=== PATIENT | female | born 1970 | race Caucasian/White ===

== ENCOUNTER 2017-04-21 08:54 | Day surgery (SDC) | payer MEDICARE, OTHER ==
[~2017-04-21] VITALS: Ht 167.6 cm; Wt 119.2 kg
[~2017-04-21 08:54] MED LIST: ACET500; AMIT10; AMOX500 PO; ANTOXYBENA OT; Advil200 M1 PO; BIRTH CONTROL PILLS; CIPR500; CYCL10 PO; DIAZ10 PO; DIAZ2 PO; DIAZ5 PO; DULO30 PO; ESOM20; ESTR2 PO; GABA300 PO; HYDACE10B PO; HYDACE5 PO; HYDMOR2 PO; IBUP200; IBUP200 PO; IBUP800; IBUP800 PO; IRON; LEVSOD125 PO; LEVSOD137 PO; LEVSOD200; METF500C PO; NAPR550 PO; OMEP20ER; OMEP20ER PO; OXYACE5T PO; OXYACE7.5T; OXYB5 PO; OXYC5; PROM25 PO; Pyridium200 MG; RANI150 PO; STOMUL; SUCR1 PO; SYNTHROID; Synthroid/Levothroid PO; TIZA4 PO; TRAZ150T57 PO; VARE1 PO; Zanaflex4 M1 PO; [UNRECOGNIZED DRUG - OTHER]
== END 2017-04-21 13:30 | disposition home or self-care (01) ==
LOC: ORSCSDS 08:54
PROVIDERS: Urology
PROC: 0T768DZ Dilation of Right Ureter with Intraluminal Device, Via Natural or Artificial Opening Endoscopic (ICD-10-PCS; principal; 2017-04-21 10:15)
PROC: 0TF68ZZ Fragmentation in Right Ureter, Via Natural or Artificial Opening Endoscopic (ICD-10-PCS; principal; 2017-04-21 10:15)
DX: N20.1 Calculus of ureter (principal); G47.33 Obstructive sleep apnea (adult) (pediatric); E66.01 Morbid (severe) obesity due to excess calories; Z68.41 Body mass index [BMI] 40.0-44.9, adult; E03.9 Hypothyroidism, unspecified; Z87.891 Personal history of nicotine dependence; Z79.899 Other long term (current) drug therapy
CPT/HCPCS: C1769; C1889; C1894; C2617; J0744; J1885; J2250; J2405; J2710; J3010; J7120

== ENCOUNTER 2017-12-20 18:23 | Emergency (ER) | payer MEDICARE ==
[~2017-12-20] VITALS: Ht 167.6 cm; Wt 108.9 kg
[2017-12-20] MEDS ORDERED: LIDO700A20 TOP (19:37)
[2017-12-20] MEDS ORDERED: Zofran Odt4 MG SL (19:37)
[2017-12-20] MEDS ORDERED: METPRE4DP PO (19:37)
== END 2017-12-20 19:54 | disposition home or self-care (01) ==
LOC: ER 18:23
DX: M54.41 Lumbago with sciatica, right side (principal); Z88.5 Allergy status to narcotic agent; Z88.8 Allergy status to other drugs, medicaments and biological substances; Z79.899 Other long term (current) drug therapy; F17.210 Nicotine dependence, cigarettes, uncomplicated
CPT/HCPCS: 96372; 99283; J1885

== ENCOUNTER 2020-06-21 17:01 | Emergency (ER) | payer MEDICARE ==
[~2020-06-21] VITALS: Ht 165.1 cm; Wt 117.9 kg
[~2020-06-21 17:01] MED LIST changes: +LIDO700A20 TOP; +METPRE4DP PO; -TRAZ150T57 PO; +TRAZ50 PO; -Zanaflex4 M1 PO; +Zofran Odt4 MG SL
[2020-06-21 17:37] LABS: BASOPHILS ABSOLUTE AUTO 0.04 K/mm3 (0.00-0.23); BASOPHILS PERCENT AUTO 0 % (0-2); EOSINOPHILS ABSOLUTE AUTO 0.17 K/mm3 (0.00-0.68); EOSINOPHILS PERCENT AUTO 2 % (0-6); Hematocrit 46.4 % (33.0-51.0); Hemoglobin 15.4 g/dL (11.5-16.0); IMMATURE GRAN ABSOLUTE AUTO 0.03 K/mm3 (0.00-0.10); IMMATURE GRAN PERCENT AUTO 0 % (0-1); LYMPHOCYTES ABSOLUTE AUTO 2.57 K/mm3 (0.84-5.20); LYMPHOCYTES PERCENT AUTO 22 % (21-46); MONOCYTES PERCENT AUTO 7 % (4-13); Mean Corpuscular HGB 30.2 pg (26.0-34.0); Mean Corpuscular HGB Conc 33.2 g/dL (31.5-36.5); Mean Corpuscular Volume 91 fL (80-100); NEUTROPHILS ABSOLUTE AUTO 7.87 K/mm3 (1.96-9.15); NEUTROPHILS PERCENT AUTO 69 % (41-73); Platelet Count 205 K/mm3 (150-400); RDW Coefficient Variation 13.2 % (11.7-14.2); White Blood Cell Count 11.48 K/mm3 (4.00-11.30)
[2020-06-21 17:57] LABS: Alanine Aminotransfer (ALT/SGP 23 U/L (12-78); Albumin, Blood 3.5 g/dL (3.4-5.0); Albumin/Globulin Ratio 0.9 (0.8-1.8); Alk Phos 83 U/L (50-136); Anion Gap 4 mmol/L (6-16); Aspartate Aminotrans (AST/SGOT 19 U/L (12-37); Bilirubin, Total 0.3 mg/dL (0.1-1.0); Blood Urea Nitrogen 8 mg/dL (8-24); Bun/Creatinine Ratio 10.1 (12.0-20.0); CO2, Blood 25 mmol/L (21-32); Calcium, Blood 8.9 mg/dL (8.5-10.1); Chloride, Blood 111 mmol/L (98-108); Globulin, Blood 3.9 g/dL (2.2-4.0); Glomerular Filtration Rate >60 (60-); Glucose, Blood 102 mg/dL (70-99); Potassium, Blood 3.9 mmol/L (3.5-5.5); Sodium, Blood 140 mmol/L (136-145); Total Protein, Blood 7.4 g/dL (6.4-8.2)
[2020-06-21] MEDS ORDERED: PREG100 PO (19:30)
[2020-06-21] MEDS ORDERED: Cleocin HCl300 MG PO (19:53)
== END 2020-06-21 20:01 | disposition home or self-care (01) ==
LOC: ER 17:01
PROVIDERS: Physician Assistant
DX: K04.7 Periapical abscess without sinus (principal); F17.210 Nicotine dependence, cigarettes, uncomplicated; Z88.5 Allergy status to narcotic agent; Z88.8 Allergy status to other drugs, medicaments and biological substances; Z79.899 Other long term (current) drug therapy
CPT/HCPCS: 36415; 41800; 80053; 85025; 99283-25; A9270

== ENCOUNTER 2020-07-02 09:27 | Day surgery (SDC) | payer MEDICARE ==
[~2020-07-02] VITALS: Ht 167.6 cm; Wt 126.6 kg
[~2020-07-02 09:27] MED LIST changes: +Cleocin HCl300 MG PO; +PREG100 PO
== END 2020-07-02 11:20 | disposition home or self-care (01) ==
LOC: ORSCSDS 09:27
PROVIDERS: Orthopaedic Surgery
PROC: 01N54ZZ Release Median Nerve, Percutaneous Endoscopic Approach (ICD-10-PCS; principal; 2020-07-02 10:45)
DX: G56.02 Carpal tunnel syndrome, left upper limb (principal); F17.210 Nicotine dependence, cigarettes, uncomplicated; E66.01 Morbid (severe) obesity due to excess calories; Z68.42 Body mass index [BMI] 45.0-49.9, adult; Z79.899 Other long term (current) drug therapy
CPT/HCPCS: A9270; J2250; J2704; J3010

== ENCOUNTER → 2020-11-17 | Outpatient (CLI) | payer MEDICARE | END | disposition home or self-care (01) | LOC: LAB 18:17 → LAB SHORT 18:17 | DX: E03.9 Hypothyroidism, unspecified (principal) | CPT/HCPCS: 84443 ==

== ENCOUNTER → 2021-06-24 | Outpatient (CLI) | payer OTHER | END | disposition home or self-care (01) | LOC: LAB SHORT 12:53 | DX: R10.13 Epigastric pain (principal); R10.11 Right upper quadrant pain; R14.0 Abdominal distension (gaseous); Z98.84 Bariatric surgery status | CPT/HCPCS: 87338 ==

== ENCOUNTER → 2022-03-26 | Outpatient (CLI) | payer OTHER ==
[2022-03-26 16:05] LABS: BASOPHILS ABSOLUTE AUTO 0.04 K/mm3 (0.00-0.23); BASOPHILS PERCENT AUTO 0 % (0-2); EOSINOPHILS ABSOLUTE AUTO 0.15 K/mm3 (0.00-0.68); EOSINOPHILS PERCENT AUTO 2 % (0-6); Hematocrit 47.1 % (33.0-51.0); Hemoglobin 15.5 g/dL (11.5-16.0); IMMATURE GRAN ABSOLUTE AUTO 0.02 K/mm3 (0.00-0.10); IMMATURE GRAN PERCENT AUTO 0 % (0-1); LYMPHOCYTES ABSOLUTE AUTO 3.05 K/mm3 (0.84-5.20); LYMPHOCYTES PERCENT AUTO 31 % (21-46); MONOCYTES PERCENT AUTO 5 % (4-13); Mean Corpuscular HGB 28.8 pg (26.0-34.0); Mean Corpuscular HGB Conc 32.9 g/dL (31.5-36.5); Mean Corpuscular Volume 88 fL (80-100); Mean Platelet Volume 11.4 fL (9.1-12.4); NEUTROPHILS ABSOLUTE AUTO 6.11 K/mm3 (1.96-9.15); NEUTROPHILS PERCENT AUTO 62 % (41-73); Platelet Count 240 K/mm3 (150-400); RDW Coefficient Variation 13.4 % (11.7-14.2); RDW Standard Deviation 42.8 fL (35.1-46.3); Red Blood Cell Count 5.38 M/mm3 (3.80-5.20); White Blood Cell Count 9.87 K/mm3 (4.00-11.30)
[2022-03-26 17:13] LABS: Alanine Aminotransfer (ALT/SGP 30 U/L (12-78); Albumin, Blood 3.6 g/dL (3.4-5.0); Alk Phos 73 U/L (50-136); Anion Gap 4 mmol/L (6-16); Aspartate Aminotrans (AST/SGOT 27 U/L (12-37); Bilirubin, Total 0.3 mg/dL (0.1-1.0); Blood Urea Nitrogen 11 mg/dL (8-24); CHOL/HDL RATIO 3.1; CO2, Blood 28 mmol/L (21-32); Calcium, Blood 9.1 mg/dL (8.5-10.1); Chloride, Blood 106 mmol/L (98-108); Cholesterol 132 mg/dL (50-200); Glucose, Blood 95 mg/dL (70-99); HDL Cholesterol 42 mg/dL (>39); Iron Serum 99 ug/dL (50-170); LDL/HDL RATIO 1.3; Low Density Lipoprotein Chol 53 mg/dL (0-110); Percent Saturation 26.3 % (15.0-50.0); Sodium, Blood 138 mmol/L (136-145); Total Iron Binding Capacity 376 ug/dL (250-450); Triglycerides 185 mg/dL (30-160); Very Low Density Lipoprot Chol 37 mg/dL (6-32)
[2022-03-26 17:58] LABS: Bun/Creatinine Ratio 13.9 (12.0-20.0); Creatinine, Blood 0.79 mg/dL (0.40-1.00); Ferritin, Serum 25 ng/mL (8-252); Globulin, Blood 3.6 g/dL (2.2-4.0); Glomerular Filtration Rate 91 (60-); Total Protein, Blood 7.2 g/dL (6.4-8.2)
== END | disposition home or self-care (01) ==
LOC: LAB SHORT 11:25 → LAB 11:25
PROVIDERS: Internal Medicine
DX: K91.2 Postsurgical malabsorption, not elsewhere classified (principal); E53.8 Deficiency of other specified B group vitamins; E55.9 Vitamin D deficiency, unspecified; E61.1 Iron deficiency; Z98.84 Bariatric surgery status
CPT/HCPCS: 36415; 80053; 80061; 82306; 82607; 82728; 82746; 83540; 83550; 85025

== ENCOUNTER → 2022-07-12 | Outpatient (CLI) | payer OTHER | END | disposition home or self-care (01) | LOC: LAB 12:00 → LAB SHORT 12:00 | DX: E66.01 Morbid (severe) obesity due to excess calories (principal); E78.5 Hyperlipidemia, unspecified | CPT/HCPCS: 84443 ==

== ENCOUNTER 2022-12-02 09:09 | Day surgery (SDC) | payer OTHER ==
[~2022-12-02] VITALS: Ht 167.6 cm; Wt 126.2 kg
[2022-12-02] MEDS ORDERED: TRIA50 PO (10:38)
[2022-12-02] MEDS ORDERED: HYDCHL25 PO (10:39)
--- NOTE | 2022-12-02 11:14 | NUR ---
12/02/22 1114 Yolanda Man PT GETTING HURRICAIN SPRAY PRIOR TO PROCEDURE ORDERED BY MD DODSON AND MD SYLVESTER TO MAKE THROAT NUMB.
[2022-12-02 12:26] VITALS: BP 146/78
== END 2022-12-02 12:32 | disposition home or self-care (01) ==
LOC: ORSCSDS 09:09 → ORD 10:30 → ORSCSDS 10:30
PROVIDERS: Internal Medicine Gastroenterology
PROC: 0DBH8ZX Excision of Cecum, Via Natural or Artificial Opening Endoscopic, Diagnostic (ICD-10-PCS; principal; 2022-12-02 10:30)
PROC: 0DB48ZX Excision of Esophagogastric Junction, Via Natural or Artificial Opening Endoscopic, Diagnostic (ICD-10-PCS; principal; 2022-12-02 10:30)
PROC: 0DB78ZX Excision of Stomach, Pylorus, Via Natural or Artificial Opening Endoscopic, Diagnostic (ICD-10-PCS; principal; 2022-12-02 10:30)
DX: K21.9 Gastro-esophageal reflux disease without esophagitis (principal); R63.4 Abnormal weight loss; R93.5 Abnormal findings on diagnostic imaging of other abdominal regions, including retroperitoneum; D12.0 Benign neoplasm of cecum; K57.30 Diverticulosis of large intestine without perforation or abscess without bleeding; Z98.84 Bariatric surgery status; F17.210 Nicotine dependence, cigarettes, uncomplicated; I10 Essential (primary) hypertension; B19.20 Unspecified viral hepatitis C without hepatic coma; G47.33 Obstructive sleep apnea (adult) (pediatric); E66.01 Morbid (severe) obesity due to excess calories; Z68.42 Body mass index [BMI] 45.0-49.9, adult; E03.9 Hypothyroidism, unspecified; F32.A Depression, unspecified; Z79.899 Other long term (current) drug therapy
CPT/HCPCS: 82947; 88305; 88342; A9270; J2250; J2704; J7120

== ENCOUNTER → 2023-05-24 | Outpatient (CLI) | payer OTHER ==
[~2023-05-24] MED LIST changes: +HYDCHL25 PO; +TRIA50 PO
== END | disposition home or self-care (01) ==
LOC: LAB 13:32 → LAB SHORT 13:32
DX: L43.2 Lichenoid drug reaction (principal); R21 Rash and other nonspecific skin eruption
CPT/HCPCS: 88305

== ENCOUNTER → 2024-01-18 | Outpatient (CLI) | payer OTHER | END | disposition home or self-care (01) | LOC: LAB SHORT 13:10 → LAB 13:10 | DX: D18.01 Hemangioma of skin and subcutaneous tissue (principal) | CPT/HCPCS: 88305 ==

== ENCOUNTER → 2024-04-20 | Outpatient (CLI) | payer OTHER | LOC: LAB SHORT 13:38 → LAB 13:38 | DX: L02.419 Cutaneous abscess of limb, unspecified (principal) | CPT/HCPCS: 87070; 87075; 87077; 87147; 87186; 87205 ==

== ENCOUNTER → 2024-05-16 | Outpatient (CLI) | payer OTHER | LOC: LAB 16:58 → LAB SHORT 16:58 | DX: N39.0 Urinary tract infection, site not specified (principal) | CPT/HCPCS: 87077; 87086; 87186 ==

== ENCOUNTER 2024-06-05 08:27 | Emergency (ER) | payer OTHER ==
[~2024-06-05] VITALS: Ht 167.6 cm; Wt 126.1 kg
[2024-06-05] MEDS ORDERED: NS 1,000 ML IV SCH (09:15)
[2024-06-05 09:44] LABS: BASOPHILS ABSOLUTE AUTO 0.02 K/mm3 (0.00-0.23); BASOPHILS PERCENT AUTO 0 % (0-2); EOSINOPHILS ABSOLUTE AUTO 0.17 K/mm3 (0.00-0.68); EOSINOPHILS PERCENT AUTO 2 % (0-6); Hematocrit 44.2 % (33.0-51.0); IMMATURE GRAN ABSOLUTE AUTO 0.02 K/mm3 (0.00-0.10); IMMATURE GRAN PERCENT AUTO 0 % (0-1); LYMPHOCYTES ABSOLUTE AUTO 0.76 K/mm3 (0.84-5.20); LYMPHOCYTES PERCENT AUTO 7 % (21-46); MONOCYTES ABSOLUTE AUTO 0.37 K/mm3 (0.16-1.47); MONOCYTES PERCENT AUTO 4 % (4-13); Mean Corpuscular HGB 29.3 pg (26.0-34.0); Mean Corpuscular HGB Conc 33.9 g/dL (31.5-36.5); Mean Corpuscular Volume 86 fL (80-100); Mean Platelet Volume 10.6 fL (9.1-12.4); NEUTROPHILS ABSOLUTE AUTO 8.98 K/mm3 (1.96-9.15); NEUTROPHILS PERCENT AUTO 87 % (41-73); Platelet Count 240 K/mm3 (150-400); RDW Coefficient Variation 12.6 % (11.7-14.2); RDW Standard Deviation 40.3 fL (35.1-46.3); Red Blood Cell Count 5.12 M/mm3 (3.80-5.20); White Blood Cell Count 10.32 K/mm3 (4.00-11.30)
[2024-06-05 10:06] LABS: Albumin, Blood 3.2 g/dL (3.4-5.0); Albumin/Globulin Ratio 0.8 (0.8-1.8); Bilirubin, Total 0.3 mg/dL (0.1-1.0); Calcium, Blood 9.1 mg/dL (8.5-10.1); Creatinine, Blood 0.85 mg/dL (0.40-1.00); Globulin, Blood 4.2 g/dL (2.2-4.0); Potassium, Blood 3.5 mmol/L (3.5-5.5); Total Protein, Blood 7.4 g/dL (6.4-8.2)
[2024-06-05 10:09] VITALS: BP 146/89
[2024-06-05] MEDS ORDERED: MONDOXYNE NL100 MG PO (10:45)
== END 2024-06-05 11:00 | disposition home or self-care (01) ==
LOC: ER 08:27
PROVIDERS: Emergency Medicine
DX: L03.111 Cellulitis of right axilla (principal); F17.210 Nicotine dependence, cigarettes, uncomplicated; Z88.5 Allergy status to narcotic agent; Z88.8 Allergy status to other drugs, medicaments and biological substances; Z79.899 Other long term (current) drug therapy
CPT/HCPCS: 36415; 80053; 83605; 85025; 99283; J7030

== ENCOUNTER → 2025-01-16 | Outpatient (CLI) | payer OTHER ==
[~2025-01-16] MED LIST changes: +DYAZIDE 37.5-21 EACH PO; +EUTHYROX175 MCG PO; +MONDOXYNE NL100 MG PO; +OZEMPIC2 MG/0.75 SC; -PREG100 PO; +PREG300 PO; +TRAZ100 PO; -TRAZ50 PO; -TRIA50 PO; +VITAMIN D310 MC1 PO
== END ==
LOC: LAB 08:20 → LAB SHORT 08:20
DX: E55.9 Vitamin D deficiency, unspecified (principal); E53.9 Vitamin B deficiency, unspecified; E53.8 Deficiency of other specified B group vitamins
CPT/HCPCS: 82306; 82607; 82746

== ENCOUNTER 2025-02-11 05:59 | Day surgery (SDC) | payer OTHER ==
[~2025-02-11] VITALS: Ht 165.1 cm; Wt 107.7 kg
[2025-02-11] VITALS (20 sets, daily range): BP systolic 98–139; BP diastolic 45–82
[~2025-02-11 05:59] MED LIST changes: -EUTHYROX175 MCG PO; +LEVSOD150 PO
[2025-02-11] MEDS ORDERED: Ropivacaine 0.5% HCl/Pf 123.125 MG,EPINEPHrine HCL 0.25 MG,Ketorolac Tromethamine 15 MG... INFIL SCH (06:15)
[2025-02-11] MEDS ORDERED: CeFAZolin Sodium 2,000 MG in NS 100 ML IV SCH ×2 (06:15→15:30)
[2025-02-11] MEDS ORDERED: Tranexamic Acid 100 ML IV SCH (06:15)
[2025-02-11] MEDS ORDERED: Chlorhexidine Mouth Care 15 ML UDC MT SCH (06:15)
--- NOTE | 2025-02-11 07:02 | NUR ---
History, Chart, Medications and Allergies reviewed before start of procedure. Ambulatory in Day Surgery. Pre-Op teaching done. Pt verbalizes understanding. Patient confirms NPO status and agrees with scheduled surgery. Patient States Post-Procedure ride home has been arranged.
[2025-02-11] MEDS ORDERED: Midazolam HCl 1MG / ML 2ML Vial IV SCH (07:25)
[2025-02-11] MEDS ORDERED: Midazolam HCl 1MG / ML 2ML Vial ONE (07:34)
[2025-02-11] MEDS ORDERED: FentaNYL Citrate 50 MCG/ML 2 ML Injection ONE ×4 (07:51→10:34)
[2025-02-11] MEDS ORDERED: Dexamethasone Sod Phos 10 MG/ML 1ML VIAL ONE ×2 (07:56→08:59)
[2025-02-11] MEDS ORDERED: Rocuronium Bromide 10 MG/ML 5ML Injection IV ONE (07:56)
[2025-02-11] MEDS ORDERED: Ondansetron HCl 2 MG / ML 2ML Vial ONE ×3 (07:56→10:18)
[2025-02-11] MEDS ORDERED: FLU VACC TS2025-26(6MOS UP)/PF 45 MCG/0.5 ML SYRINGE IM SCH (08:25)
[2025-02-11] MEDS ORDERED: HYDROmorphone HCl/Pf 1MG SYR IV PRN ×3 (08:25→09:10)
[2025-02-11] MEDS ORDERED: Magnesium Hydroxide Conc 10 ML UDC PO PRN (08:30)
[2025-02-11] MEDS ORDERED: Ondansetron HCl 2 MG / ML 2ML Vial IV PRN ×2 (08:30→09:10)
[2025-02-11] MEDS ORDERED: Metoclopramide HCl 5MG / ML 2ML Vial IV PRN (08:30)
[2025-02-11] MEDS ORDERED: Prochlorperazine Edisylate 10 mg Vial IV PRN ×2 (08:35→09:05)
[2025-02-11] MEDS ORDERED: Ketorolac Tromethamine 30mg Vial ONE (08:59)
[2025-02-11] MEDS ORDERED: Sugammadex Sodium 200 MG/2ML SDV (100 MG/ML) ONE (08:59)
[2025-02-11] MEDS ORDERED: FentaNYL Citrate 50 MCG/ML 2 ML Injection IV PRN ×2 (09:10)
[2025-02-11] MEDS ORDERED: Albuterol 2.5 MG/3 ML VIAL INH PRN (09:10)
[2025-02-11] MEDS ORDERED: HYDROmorphone HCl/Pf 1MG SYR ONE ×2 (10:18→10:34)
[2025-02-11] MEDS ORDERED: Prochlorperazine Edisylate 10 mg Vial ONE (10:31)
--- NOTE | 2025-02-11 11:08 | NUR ---
POST OP ARRIVAL TO SURGICAL UNIT VIA HOSPITAL BED. ALERT, ORIENTED, BUT PAINFUL. ASSESSMENT CHARTED. DENIES N/V SO SNACKS & DRINKS GIVEN. CRYOTHERAPY IN PLACE.
[2025-02-11] MEDS ORDERED: Ketorolac Tromethamine 15mg Vial IV SCH (12:00)
[2025-02-11] MEDS ORDERED: ACET500 PO (13:07)
[2025-02-11] MEDS ORDERED: DOCU100 PO (13:07)
[2025-02-11] MEDS ORDERED: OXYC5 PO (13:08)
[2025-02-11] MEDS ORDERED: XARELTO10 M2 PO (13:08)
--- NOTE | 2025-02-11 16:34 | NUR ---
DISCHARGE PT HAS WORKED w/ THERAPY. 1st THERAPY SESSION, BP BECAME LOWERED. 2nd SHE DID GREAT. PAIN WELL CONTROLLED. EATING, DRINKING, & VOIDING WELL. POLAR PACK SENT w/ PT. ESCORTED OUT VIA W/C.
[2025-02-12] MEDS ORDERED: Levothyroxine Sodium 0.15 MG Tab PO SCH (06:00)
[2025-02-12] MEDS ORDERED: Triamter/HCthiazide 37.5/25 MG 1 Tab PO SCH (09:00)
== END 2025-02-11 17:10 | disposition home or self-care (01) ==
LOC: ORSCMMR 05:59 → ORD 07:30 → SURS 11:01 → ORSCMMR 17:10
PROVIDERS: Orthopaedic Surgery
PROC: 0SR90JA Replacement of Right Hip Joint with Synthetic Substitute, Uncemented, Open Approach (ICD-10-PCS; principal; 2025-02-11 07:30)
DX: M16.11 Unilateral primary osteoarthritis, right hip (principal); I10 Essential (primary) hypertension; K21.9 Gastro-esophageal reflux disease without esophagitis; G47.33 Obstructive sleep apnea (adult) (pediatric); E66.9 Obesity, unspecified; Z68.39 Body mass index [BMI] 39.0-39.9, adult; Z79.899 Other long term (current) drug therapy; Z79.85 Long-term (current) use of injectable non-insulin antidiabetic drugs
CPT/HCPCS: 72170; 97110; 97116; 97161; 97530; A9270; C1776; J0166; J0690; J0735; J0780; J1100; J1171; J1885; J2250; J2405; J2704; J2795; J3010; J7120

== ENCOUNTER 2025-02-22 10:36 | Emergency (ER) | payer OTHER ==
[~2025-02-22] VITALS: Ht 167.6 cm; Wt 104.3 kg
[~2025-02-22 10:36] MED LIST changes: +ACET500 PO; +DOCU100 PO; +OXYC5 PO; +XARELTO10 M2 PO
[2025-02-22] MEDS ORDERED: HYDROmorphone HCl/Pf 1MG SYR IV ONE ×3 (10:40→13:00)
[2025-02-22] MEDS ORDERED: Ondansetron HCl 2 MG / ML 2ML Vial IV ONE ×3 (10:40→16:45)
[2025-02-22 11:01] LABS: BASOPHILS ABSOLUTE AUTO 0.06 K/mm3 (0.00-0.23); BASOPHILS PERCENT AUTO 1 % (0-2); EOSINOPHILS ABSOLUTE AUTO 0.30 K/mm3 (0.00-0.68); EOSINOPHILS PERCENT AUTO 3 % (0-6); Hematocrit 41.4 % (33.0-51.0); Hemoglobin 13.2 g/dL (11.5-16.0); IMMATURE GRAN ABSOLUTE AUTO 0.04 K/mm3 (0.00-0.10); IMMATURE GRAN PERCENT AUTO 0 % (0-1); LYMPHOCYTES ABSOLUTE AUTO 3.00 K/mm3 (0.84-5.20); LYMPHOCYTES PERCENT AUTO 27 % (21-46); MONOCYTES ABSOLUTE AUTO 0.58 K/mm3 (0.16-1.47); MONOCYTES PERCENT AUTO 5 % (4-13); Mean Corpuscular HGB Conc 31.9 g/dL (31.5-36.5); Mean Corpuscular Volume 88 fL (80-100); NEUTROPHILS ABSOLUTE AUTO 7.22 K/mm3 (1.96-9.15); NEUTROPHILS PERCENT AUTO 64 % (41-73); NRBC ABSOLUTE 0.00 K/mm3 (0.00-0.02); NRBC Auto 0.0 /100 WBC (0.0-0.2); Platelet Count 422 K/mm3 (150-400); RDW Coefficient Variation 13.6 % (11.7-14.2); RDW Standard Deviation 43.2 fL (35.1-46.3)
[2025-02-22 11:29] LABS: Alanine Aminotransfer (ALT/SGP 18.0 U/L (12-78); Albumin, Blood 3.3 g/dL (3.4-5.0); Albumin/Globulin Ratio 0.8 (0.8-1.8); Anion Gap 7.0 mmol/L (3-11); Aspartate Aminotrans (AST/SGOT 17.0 U/L (12-37); Bilirubin, Total 0.3 mg/dL (0.1-1.0); Blood Urea Nitrogen 10.0 mg/dL (8-24); CO2, Blood 29.0 mmol/L (21-32); Calcium, Blood 9.5 mg/dL (8.5-10.1); Chloride, Blood 108.0 mmol/L (98-108); Creatinine, Blood 0.8 mg/dL (0.40-1.00); Globulin, Blood 4.0 g/dL (2.2-4.0); Glucose, Blood 113.0 mg/dL (70-99); Potassium, Blood 3.4 mmol/L (3.5-5.5); Sodium, Blood 141.0 mmol/L (136-145); Total Protein, Blood 7.3 g/dL (6.4-8.2)
[2025-02-22 12:18] LABS: Source, Urine Clean Catch
[2025-02-22 12:24] LABS: Bilirubin, Urine Neg (Neg); Glucose Qualitative, Urine Neg (Neg); Ketones, Urine Neg (Neg); Leukocyte Esterase, Urine Neg (Neg); Protein, Urine Neg (Neg); Specific Gravity, Urine 1.010 (1.003-1.022); Urobilinogen, Urine NORM (Normal)
[2025-02-22 12:30] LABS: Color, Urine Pale Yellow (P-Yellow)
[2025-02-22 12:33] LABS: White Blood Cells, Urine 0-2 /hpf (0-5)
[2025-02-22] MEDS ORDERED: Prochlorperazine Edisylate 10 mg Vial IV ONE (12:35)
[2025-02-22] MEDS ORDERED: Morphine Sulfate 10 MG/ML 1MLSYR IV ONE ×4 (13:10→17:50)
[2025-02-22 18:00] VITALS: BP 113/67
== END 2025-02-22 18:46 | disposition short-term general hospital (02) ==
LOC: ER 10:36
PROVIDERS: Student in an Organized Health Care Education/Training Program
DX: K91.89 Other postprocedural complications and disorders of digestive system (principal); Z90.710 Acquired absence of both cervix and uterus; F17.210 Nicotine dependence, cigarettes, uncomplicated; G47.30 Sleep apnea, unspecified
CPT/HCPCS: 74177; 80053; 81001; 83690; 85025; 96374; 96375; 96376; 99285-25; J0780; J1171; J2270; J2405; Q9967

== ENCOUNTER → 2025-03-06 | Outpatient (CLI) | payer OTHER ==
[2025-03-06 18:58] LABS: Thyroid Stimulating Hormone 2.28 uIU/mL (0.360-4.800)
== END ==
LOC: LAB SHORT 13:44 → LAB 13:44
PROVIDERS: Internal Medicine
DX: E03.9 Hypothyroidism, unspecified (principal)
CPT/HCPCS: 84439; 84443